=== PATIENT | male | born 1945 | race Caucasian/White ===

== ENCOUNTER 2020-04-14 10:33 | Observation (INO) | payer OTHER, MEDICARE ==
[~2020-04-14] VITALS: Ht 177.8 cm; Wt 63.7 kg
[2020-04-14 10:59] LABS: BASOPHILS ABSOLUTE AUTO 0.05 K/mm3 (0.00-0.23); BASOPHILS PERCENT AUTO 1 % (0-2); EOSINOPHILS ABSOLUTE AUTO 0.28 K/mm3 (0.00-0.68); EOSINOPHILS PERCENT AUTO 5 % (0-6); Hematocrit 40.5 % (37.0-53.0); Hemoglobin 13.9 g/dL (13.5-17.5); IMMATURE GRAN ABSOLUTE AUTO 0.01 K/mm3 (0.00-0.10); IMMATURE GRAN PERCENT AUTO 0 % (0-1); LYMPHOCYTES ABSOLUTE AUTO 1.81 K/mm3 (0.84-5.20); LYMPHOCYTES PERCENT AUTO 33 % (21-46); MONOCYTES ABSOLUTE AUTO 0.49 K/mm3 (0.16-1.47); MONOCYTES PERCENT AUTO 9 % (4-13); Mean Corpuscular HGB 30.9 pg (26.0-34.0); Mean Corpuscular HGB Conc 34.3 g/dL (31.5-36.5); Mean Corpuscular Volume 90 fL (80-100); Mean Platelet Volume 8.8 fL (9.1-12.4); NEUTROPHILS PERCENT AUTO 52 % (41-73); Platelet Count 284 K/mm3 (150-400); RDW Coefficient Variation 12.8 % (11.7-14.2); RDW Standard Deviation 42.2 fL (35.1-46.3); White Blood Cell Count 5.54 K/mm3 (4.00-11.30)
[2020-04-14 11:19] LABS: Alanine Aminotransfer (ALT/SGP 19 U/L (12-78); Albumin, Blood 3.6 g/dL (3.4-5.0); Alk Phos 98 U/L (50-136); Anion Gap 5 mmol/L (6-16); Aspartate Aminotrans (AST/SGOT 15 U/L (12-37); Bilirubin, Total 2.2 mg/dL (0.1-1.0); Blood Urea Nitrogen 18 mg/dL (8-24); Bun/Creatinine Ratio 20.4 (12.0-20.0); CO2, Blood 26 mmol/L (21-32); Calcium, Blood 8.5 mg/dL (8.5-10.1); Chloride, Blood 106 mmol/L (98-108); Creatinine, Blood 0.88 mg/dL (0.60-1.20); Globulin, Blood 3.7 g/dL (2.2-4.0); Glomerular Filtration Rate >60 (60-); Glucose, Blood 90 mg/dL (70-99); Potassium, Blood 3.8 mmol/L (3.5-5.5); Sodium, Blood 137 mmol/L (136-145); Total Protein, Blood 7.3 g/dL (6.4-8.2); Troponin I <0.015 ng/mL (0.000-0.040)
[2020-04-14 14:09] LABS: Influenza A, PCR NEGATIVE (NEGATIVE); Influenza B, PCR NEGATIVE (NEGATIVE); Resp Syncytial Virus, PCR NEGATIVE (NEGATIVE); SARS-Cov-2 (COVID-19) PCR, MMC NEGATIVE (NEGATIVE)
[2020-04-14] MEDS ORDERED: ASPI325 PO (15:48)
--- NOTE | 2020-04-14 16:46 | NUR ---
ADMITTED TO 360 FROM THE ED. HE IS A&O AND FULLY AMBULATORY. HE IS PLEASANT AND COOPERATIVE AND A GOOD HISTORIAN. [facility] PHONE INSIDE HIS NAILHEAD PUNCHER IN THEIR PARKING LOT. THEY WILL TRY TO GET IT TO HIM HERE. HE HAS NO CP OR ANY OTHER PAIN. NO SOB. NO DIZZINESS. HE WILL LET US KNOW IF HE DOES. DECREASED AIR EXCHANGE IN HIS LLL. TELE SHOWS NSR. NEXT TROPONIN DUE ABOUT 5 PM.
[2020-04-15 05:18] LABS: Cholesterol 220 mg/dL (50-200); HDL Cholesterol 74 mg/dL (>39); LDL/HDL RATIO 1.7; Low Density Lipoprotein Chol 124 mg/dL (0-110); Triglycerides 109 mg/dL (30-160); Very Low Density Lipoprot Chol 21 mg/dL (6-32)
--- NOTE | 2020-04-15 07:38 | NUR ---
SHIFT SUMMARY: PATIENT IS A&OX4, REPORTING LEFT SIDE PAIN UNDER ARM PIT DISCOMFORT. VSS, TELEMETRY HAS BEEN SB IN THE 50'S, PATIENT WAS A LONG TIME RUNNER. TROPONINS HAVE REMAINED STABLE AT 0.015, INDEPENDANT IN ROOM.
--- NOTE | 2020-04-15 17:18 | NUR ---
SHIFT SUMMARY PT A/O X4; PLEASANT AND COOPERATIVE WITH CARE. PT IS IND IN THE ROOM. HE CAME IN C/O OF CP AND HAS REPORTED ANY CP TODAY. HE IS TO HAVE A STRESS TEST TOMORROW AND IS TO BE NPO AT MIDNIGHT. READING SINUS ON TELE. C/O HEADACHE X1 THIS SHIFT AND WAS MEDICATED PER EMR W/GOOD EFFECT. SLIGHTLY HYPERTENSIVE THIS AFTER, OTHER THAN THAT VSS. WILL REPORT TO NIGHT RN.
--- NOTE | 2020-04-16 04:53 | NUR ---
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 DENIES CHEST PAIN/PRESSURE. TELE IN PLACE RUNNING SR IN THE 70S. PLAN IS TO HAVE STRESS TEST COMPLETED TODAY. NPO SINCE MIDNIGHT. NO ACUTE CHANGES AT THIS TIME. BED IN LOWEST POSITION WITH CALL LIGHT IN REACH. WILL CONTINUE TO MONITOR AND REPORT TO ONCOMING RN.
--- NOTE | 2020-04-16 13:14 | NUR ---
PT DISCHARGED AT 1330. PT AOX4 AND COOPRERATIVE OF CARE. PT INDEPENDENT AND WALKING ALL OVER. DENIED ANY PAIN. PT WAS READY TO LEAVE SOON HIS STRESS TEST WAS COMPLETE. ALL PAPERWORK REVIEWED AND EDUCATIONAL MATERIAL SENT. ALL PERSONAL BELONGINGS WITH PT. NO DISTRESS NOTED.
== END 2020-04-16 13:11 | disposition home or self-care (01) ==
LOC: ER 10:33 → MEDS 10:34
PROVIDERS: Emergency Medicine; Nurse Practitioner Acute Care; ADMIT Family Medicine
DX: I20.9 Angina pectoris, unspecified (principal); I10 Essential (primary) hypertension; R91.1 Solitary pulmonary nodule; J43.9 Emphysema, unspecified; E78.5 Hyperlipidemia, unspecified; Z20.822 Contact with and (suspected) exposure to COVID-19; Z91.14 Patient's other noncompliance with medication regimen; Z87.891 Personal history of nicotine dependence
CPT/HCPCS: 0241U; 36415; 71045; 71260; 78452; 80053; 80061; 84484; 85025; 85379; 93005; 93010; 93017; 99285-25; A9270; A9500; G0378; Q9967